=== PATIENT | male | born 2000 | race Caucasian/White ===

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

== ENCOUNTER 2021-05-22 15:25 | Emergency (ER) | payer OTHER, BC ==
[~2021-05-22] VITALS: Ht 190.5 cm; Wt 136.1 kg
[~2021-05-22 15:25] MED LIST changes: +Norco 5-325 Ta1 EACH PO
== END 2021-05-22 17:24 | disposition home or self-care (01) ==
LOC: ER 15:25
DX: S06.9X9A Unspecified intracranial injury with loss of consciousness of unspecified duration, initial encounter (principal); W22.8XXA Striking against or struck by other objects, initial encounter
CPT/HCPCS: 70450; 99284-25